=== PATIENT | female | born 1960 | race Caucasian/White ===

== ENCOUNTER 2016-06-30 11:44 | Emergency (ER) | payer MEDICAID ==
[~2016-06-30] VITALS: Ht 160 cm; Wt 99.8 kg
[~2016-06-30 11:44] MED LIST: GABA300C8; METH500T6; NAPR-604; QUET100T38
[2016-06-30] MEDS ORDERED: LORazepam 2MG/ML-1ML VIAL IV ONE ×3 (12:30→17:30)
[2016-06-30] MEDS ORDERED: ALBUTEROL SULF 2.5 MG/0.5ML(0.5%) NEB SOLN NEB ONE ×2 (12:30→16:30)
[2016-06-30] MEDS ORDERED: IPRATROPIUM BROM 0.5 MG/2.5ML INH SOL NEB ONE ×2 (12:30→16:30)
[2016-06-30] MEDS ORDERED: methylPREDNISolone SOD SUCC 125 MG/2 ML VL IV ONE (12:30)
[2016-06-30 12:41] LABS: Basophils # (auto) 0 uL; Basophils % (auto) 0.6 % (0.0-2.0); DEFINITIVE VIEW TRANSMISSION; Eosinophils # (auto) 0.4 uL; Eosinophils % (auto) 7.1 % (0.0-7.0); Hematocrit 39.7 % (36.0-46.0); Hemoglobin 12.2 g/dL (12.2-16.2); Lymphocytes # (auto) 1.4 uL; Lymphocytes % (auto) 24.3 % (10.0-50.0); Mean Corpuscular Hemoglobin 24.2 pg (28.0-32.0); Mean Corpuscular Hgb Conc. 30.6 g/dL (32.0-36.0); Mean Corpuscular Volume 78.9 fL (80.0-100.0); Mean Platelet Volume 7.9 fL (7.4-10.4); Monocytes # (auto) 0.5 uL; Monocytes % (auto) 8.4 % (0.0-12.0); Neutrophils # (auto) 3.3 uL; Neutrophils % (auto) 59.6 % (37.0-80.0); Platelet Count (auto) 308 10^3/uL (140-450); White Blood Cell 5.6 10^3/uL (4.4-10.8)
[2016-06-30 13:01] LABS: Albumin 3.9 g/dL (3.4-5.0); Bilirubin, Total 0.3 mg/dL (0.2-1.0); Calcium 8.8 mg/dL (8.5-10.1); Potassium 3.3 mmol/L (3.5-5.1); Total Protein 7.4 g/dL (6.4-8.2)
[2016-06-30 16:12] VITALS: BP 114/71
[2016-06-30] MEDS ORDERED: cefTRIAXone 1GM/50ML D5W 50 ML IV ONE (16:30)
[2016-06-30 16:44] LABS: Urine Bilirubin Negative (Negative); Urine Blood Negative /uL (Negative); Urine Color Yellow (Yellow); Urine Glucose Normal (Normal); Urine Ketone Negative (Negative); Urine Nitrite Negative (Negative); Urine RBC <1 /hpf (0 - 4); Urine Squamous Epithelial Cell FEW /hpf (<5); Urine Urobilinogen Normal (Negative)
== END 2016-06-30 17:42 | disposition home or self-care (01) ==
LOC: ER 11:48
DX: J40 Bronchitis, not specified as acute or chronic (principal); F41.9 Anxiety disorder, unspecified; Z90.710 Acquired absence of both cervix and uterus; Z90.49 Acquired absence of other specified parts of digestive tract; Z90.89 Acquired absence of other organs
CPT/HCPCS: 36415; 71010; 80053; 81001; 85025; 93005; 94640; 96365; 96375; 96376; 99285; J0696; J2060; J2930

== ENCOUNTER 2016-07-06 10:27 | Emergency (ER) | payer MEDICAID ==
[~2016-07-06] VITALS: Ht 160 cm; Wt 90.7 kg
[2016-07-06 13:19] VITALS: BP 125/80
== END 2016-07-06 14:11 | disposition home or self-care (01) ==
LOC: ER 10:30
DX: S63.502A Unspecified sprain of left wrist, initial encounter (principal); Z90.49 Acquired absence of other specified parts of digestive tract; Z90.710 Acquired absence of both cervix and uterus; Z90.89 Acquired absence of other organs; Z88.1 Allergy status to other antibiotic agents; Z88.6 Allergy status to analgesic agent; Z88.8 Allergy status to other drugs, medicaments and biological substances; W01.0XXA Fall on same level from slipping, tripping and stumbling without subsequent striking against object, initial encounter; Y93.89 Activity, other specified; Y99.8 Other external cause status; Y92.89 Other specified places as the place of occurrence of the external cause
CPT/HCPCS: 73110

== ENCOUNTER 2016-07-18 11:31 | Emergency (ER) | payer MEDICAID ==
[~2016-07-18] VITALS: Ht 160 cm; Wt 99.8 kg
[2016-07-18 13:30] VITALS: BP 102/57
== END 2016-07-18 14:01 | disposition home or self-care (01) ==
LOC: ER 11:36
DX: S92.415A Nondisplaced fracture of proximal phalanx of left great toe, initial encounter for closed fracture (principal); Z88.1 Allergy status to other antibiotic agents; Z88.6 Allergy status to analgesic agent; Z88.8 Allergy status to other drugs, medicaments and biological substances; W19.XXXA Unspecified fall, initial encounter; Y93.01 Activity, walking, marching and hiking; Y92.009 Unspecified place in unspecified non-institutional (private) residence as the place of occurrence of the external cause
CPT/HCPCS: 73130; 73630; 99284; L3260

== ENCOUNTER 2016-09-12 14:58 | Emergency (ER) | payer MEDICAID ==
[~2016-09-12] VITALS: Ht 160 cm; Wt 108.9 kg
[2016-09-12 16:52] VITALS: BP 163/76
== END 2016-09-12 17:33 | disposition home or self-care (01) ==
LOC: ER 14:59
DX: L03.032 Cellulitis of left toe (principal); Z90.49 Acquired absence of other specified parts of digestive tract; Z90.710 Acquired absence of both cervix and uterus; Z90.89 Acquired absence of other organs; Z88.1 Allergy status to other antibiotic agents; Z88.6 Allergy status to analgesic agent; Z91.041 Radiographic dye allergy status
CPT/HCPCS: 73660

== ENCOUNTER 2016-09-14 08:02 | Emergency (ER) | payer MEDICAID ==
[~2016-09-14] VITALS: Ht 160 cm; Wt 90.7 kg
[2016-09-14 08:18] VITALS: BP 115/73
== END 2016-09-14 09:40 | disposition home or self-care (01) ==
LOC: ER 08:02
DX: T25.032D Burn of unspecified degree of left toe(s) (nail), subsequent encounter (principal); F41.9 Anxiety disorder, unspecified; F32.9 Major depressive disorder, single episode, unspecified; Z88.1 Allergy status to other antibiotic agents; Z88.5 Allergy status to narcotic agent; X08.8XXD Exposure to other specified smoke, fire and flames, subsequent encounter

== ENCOUNTER 2017-05-06 12:11 | Emergency (ER) | payer MEDICAID ==
[~2017-05-06] VITALS: Ht 160 cm; Wt 89.4 kg
[~2017-05-06 12:11] MED LIST changes: +AMOX250T8 PO; +GABA-497; -GABA300C8; +IBUP600T27 PO; -NAPR-604; +NAPR375T27; +OXYC325T14 PO
[2017-05-06] MEDS ORDERED: SODIUM CHLORIDE 0.9% 1,000 ML IV ONE ×2 (13:55)
[2017-05-06 14:30] LABS: Basophils # (auto) 0.1 uL; Basophils % (auto) 0.9 % (0.0-2.0); Eosinophils # (auto) 0.6 uL; Eosinophils % (auto) 8.3 % (0.0-7.0); Hematocrit 38.8 % (36.0-46.0); Hemoglobin 12.6 g/dL (12.2-16.2); Lymphocytes # (auto) 1.5 uL; Lymphocytes % (auto) 21.8 % (10.0-50.0); Mean Corpuscular Hgb Conc. 32.6 g/dL (32.0-36.0); Mean Corpuscular Volume 82.7 fL (80.0-100.0); Monocytes # (auto) 0.7 uL; Monocytes % (auto) 9.6 % (0.0-12.0); Neutrophils # (auto) 4.1 uL; Neutrophils % (auto) 59.4 % (37.0-80.0); Nucleated Red Blood Cells % 0.1 %; Red Blood Cells 4.69 10^6/uL (4.0-5.20); Red Cell Distribution Width 15.9 % (11.8-14.3); White Blood Cell 6.9 10^3/uL (4.4-10.8)
[2017-05-06 14:53] LABS: INR 0.98 (0.9-1.15); Partial Thromboplastin Time 25.2 sec (22.64-33.71); Prothrombin Time 10.7 sec (9.37-12.3)
[2017-05-06 15:01] LABS: Alanine Aminotransferase 36 U/L (13-56); Albumin 3.8 g/dL (3.4-5.0); Alkaline Phosphatase 86 U/L (45-117); Anion Gap 8 (5-15); Aspartate Aminotransferase 16 U/L (15-37); BUN/Creatinine Ratio 23.1; Bilirubin, Total 0.3 mg/dL (0.2-1.0); Blood Urea Nitrogen 18 mg/dL (7-18); Calcium 8.2 mg/dL (8.5-10.1); Carbon Dioxide 24 mmol/L (21-32); Chloride 111 mmol/L (98-107); GFR African American 98 mL/min; GFR Non-African American 81 mL/min; Glucose 91 mg/dL (74-106); Potassium 3.7 mmol/L (3.5-5.1); Sodium 143 mmol/L (136-145)
[2017-05-06 15:06] LABS: Platelet Count (auto) 139 10^3/uL (140-450)
[2017-05-06 15:37] LABS: Urine Bacteria NONE SEEN /hpf (None Seen); Urine Blood Negative /uL (Negative); Urine Mucus FEW (None Seen); Urine Specific Gravity 1.025 (1.001-1.035); Urine WBC 1 /hpf (0 - 5)
[2017-05-06 15:40] VITALS: BP 118/77
== END 2017-05-06 16:31 | disposition home or self-care (01) ==
LOC: ER 12:11
DX: R19.7 Diarrhea, unspecified (principal); R10.13 Epigastric pain; R07.9 Chest pain, unspecified; Z88.1 Allergy status to other antibiotic agents; Z88.6 Allergy status to analgesic agent; Z79.899 Other long term (current) drug therapy; Z90.49 Acquired absence of other specified parts of digestive tract; Z90.710 Acquired absence of both cervix and uterus
CPT/HCPCS: 36415; 80053; 81001; 84484; 85025; 85610; 85730; 93005; 93971; 96360; 99285; J7030

== ENCOUNTER 2017-05-30 12:19 | Emergency (ER) | payer MEDICAID ==
[~2017-05-30] VITALS: Ht 160 cm; Wt 91.2 kg
[~2017-05-30 12:19] MED LIST changes: -GABA-497; +GABA300C10
[2017-05-30 14:12] LABS: Basophils # (auto) 0 uL; Eosinophils # (auto) 0.4 uL; Lymphocytes # (auto) 1.5 uL; Monocytes # (auto) 0.4 uL; Neutrophils # (auto) 4.4 uL; White Blood Cell 6.8 10^3/uL (4.4-10.8)
[2017-05-30 14:14] LABS: Basophils % (auto) 0.4 % (0.0-2.0); Eosinophils % (auto) 5.8 % (0.0-7.0); Hematocrit 37.6 % (36.0-46.0); Hemoglobin 12.2 g/dL (12.2-16.2); Lymphocytes % (auto) 21.6 % (10.0-50.0); Mean Corpuscular Hemoglobin 26.5 pg (28.0-32.0); Mean Corpuscular Hgb Conc. 32.5 g/dL (32.0-36.0); Mean Corpuscular Volume 81.5 fL (80.0-100.0); Monocytes % (auto) 6.6 % (0.0-12.0); Neutrophils % (auto) 65.6 % (37.0-80.0); Nucleated Red Blood Cells % 0.2 %; Platelet Count (auto) 309 10^3/uL (140-450); Red Blood Cells 4.62 10^6/uL (4.0-5.20); Red Cell Distribution Width 16.5 % (11.8-14.3)
[2017-05-30 14:40] LABS: Albumin 3.6 g/dL (3.4-5.0); BUN/Creatinine Ratio 28.6; Bilirubin, Total 0.3 mg/dL (0.2-1.0); Calcium 8.3 mg/dL (8.5-10.1); Potassium 3.9 mmol/L (3.5-5.1); Total Protein 6.9 g/dL (6.4-8.2)
[2017-05-30 16:15] VITALS: BP 115/79
[2017-08-20] MEDS ORDERED: CYCL1TAB18 PO (06:00)
[2017-08-20] MEDS ORDERED: OXY5T GT (06:00)
[2017-08-20] MEDS ORDERED: ALBU1SYP PO (06:08)
[2017-08-20] MEDS ORDERED: DICL50TA4 PO (06:08)
[2017-08-20] MEDS ORDERED: HYDR50TA69 PO (06:08)
[2017-08-20] MEDS ORDERED: [UNRECOGNIZED DRUG - CODE] EX (06:08)
[2017-08-20] MEDS ORDERED: TIOT1AER IN (06:08)
[2017-08-20] MEDS ORDERED: AZIT250T8 PO (06:08)
[2017-08-20] MEDS ORDERED: ALPR0.254 PO (06:08)
[2017-08-20] MEDS ORDERED: AMLO5TAB2 PO (06:08)
[2017-08-20] MEDS ORDERED: PRE1T PO (06:08)
[2017-08-20] MEDS ORDERED: CITA-73 (12:50)
== END 2017-05-30 17:03 | disposition home or self-care (01) ==
LOC: ER 12:19
DX: J18.9 Pneumonia, unspecified organism (principal); J45.909 Unspecified asthma, uncomplicated; F17.210 Nicotine dependence, cigarettes, uncomplicated; Z90.49 Acquired absence of other specified parts of digestive tract; Z90.710 Acquired absence of both cervix and uterus
CPT/HCPCS: 36415; 80053; 85025; 93005

== ENCOUNTER 2017-08-27 14:05 | Emergency (ER) | payer MEDICAID ==
[~2017-08-27] VITALS: Ht 157.5 cm; Wt 93.0 kg
[~2017-08-27 14:05] MED LIST changes: +ALBU1SYP PO; +ALPR0.254 PO; +AMLO5TAB2 PO; -AMOX250T8 PO; +AZIT250T8 PO; +CITA-73; +CYCL1TAB18 PO; +DICL50TA4 PO; +HYDR50TA69 PO; -IBUP600T27 PO; -METH500T6; -NAPR375T27; +OXY5T GT; +PRE1T PO; +TIOT1AER IN; +[UNRECOGNIZED DRUG - CODE] EX
[2017-08-27 14:45] LABS: Basophils # (auto) 0.1 uL; Eosinophils # (auto) 0.1 uL; Hematocrit 40.4 % (36.0-46.0); Lymphocytes # (auto) 0.8 uL; Mean Corpuscular Hgb Conc. 32.2 g/dL (32.0-36.0); Monocytes # (auto) 0.2 uL; Monocytes % (auto) 1.9 % (0.0-12.0); Neutrophils # (auto) 8.9 uL
[2017-08-27 14:47] LABS: Basophils % (auto) 0.7 % (0.0-2.0); Eosinophils % (auto) 0.7 % (0.0-7.0); Lymphocytes % (auto) 8.3 % (10.0-50.0); Mean Corpuscular Hemoglobin 26.2 pg (28.0-32.0); Mean Corpuscular Volume 81.2 fL (80.0-100.0); Neutrophils % (auto) 88.4 % (37.0-80.0); Platelet Count (auto) 352 10^3/uL (140-450); Red Blood Cells 4.97 10^6/uL (4.0-5.20); White Blood Cell 10.1 10^3/uL (4.4-10.8)
[2017-08-27 15:02] LABS: Alanine Aminotransferase 58 U/L (13-56); Albumin 3.5 g/dL (3.4-5.0); Anion Gap 8 (5-15); Aspartate Aminotransferase 33 U/L (15-37); BUN/Creatinine Ratio 23.1; Blood Urea Nitrogen 25 mg/dL (7-18); Calcium 8.4 mg/dL (8.5-10.1); Carbon Dioxide 24 mmol/L (21-32); Chloride 108 mmol/L (98-107); GFR African American 67 mL/min; GFR Non-African American 56 mL/min; Glucose 195 mg/dL (74-106); Potassium 3.8 mmol/L (3.5-5.1); Sodium 140 mmol/L (136-145)
[2017-08-27 15:06] LABS: Alkaline Phosphatase 119 U/L (45-117); Bilirubin, Total 0.3 mg/dL (0.2-1.0); Total Protein 7.1 g/dL (6.4-8.2)
[2017-08-27 15:30] VITALS: BP 137/81
[2017-08-27] MEDS ORDERED: ALBUTEROL SULF 2.5 MG/0.5ML(0.5%) NEB SOLN NEB ONE (15:30)
[2017-08-27] MEDS ORDERED: IPRATROPIUM BROM 0.5 MG/2.5ML INH SOL NEB ONE (15:30)
== END 2017-08-27 16:28 | disposition home or self-care (01) ==
LOC: ER 14:08
DX: J45.909 Unspecified asthma, uncomplicated (principal); I10 Essential (primary) hypertension; Z90.49 Acquired absence of other specified parts of digestive tract; Z90.710 Acquired absence of both cervix and uterus; F17.210 Nicotine dependence, cigarettes, uncomplicated
CPT/HCPCS: 36415; 71046; 80053; 84484; 85025; 93005; 94640

== ENCOUNTER 2017-09-20 16:22 | Emergency (ER) | payer MEDICAID ==
[~2017-09-20] VITALS: Ht 160 cm; Wt 92.5 kg
[~2017-09-20 16:22] MED LIST changes: -AZIT250T8 PO; -CYCL1TAB18 PO; -DICL50TA4 PO; -GABA300C10; -HYDR50TA69 PO; -OXY5T GT; -OXYC325T14 PO; -PRE1T PO
[2017-09-20 17:11] LABS: Basophils # (auto) 0.1 uL; Basophils % (auto) 2.3 % (0.0-2.0); Eosinophils # (auto) 0.2 uL; Eosinophils % (auto) 2.9 % (0.0-7.0); Hematocrit 34.7 % (36.0-46.0); Hemoglobin 11.5 g/dL (12.2-16.2); Lymphocytes # (auto) 1.4 uL; Lymphocytes % (auto) 23.6 % (10.0-50.0); Mean Corpuscular Hemoglobin 27.1 pg (28.0-32.0); Mean Corpuscular Hgb Conc. 33.2 g/dL (32.0-36.0); Mean Corpuscular Volume 81.7 fL (80.0-100.0); Monocytes # (auto) 0.7 uL; Monocytes % (auto) 11.7 % (0.0-12.0); Neutrophils # (auto) 3.6 uL; Neutrophils % (auto) 59.5 % (37.0-80.0); Nucleated Red Blood Cells % 0.1 %; Platelet Count (auto) 234 10^3/uL (140-450); Red Blood Cells 4.25 10^6/uL (4.0-5.20); Red Cell Distribution Width 18.2 % (11.8-14.3)
[2017-09-20 17:32] LABS: Alanine Aminotransferase 100 U/L (13-56); Albumin 3.3 g/dL (3.4-5.0); Anion Gap 11 (5-15); Aspartate Aminotransferase 48 U/L (15-37); BUN/Creatinine Ratio 16.3; Blood Urea Nitrogen 15 mg/dL (7-18); Calcium 8.2 mg/dL (8.5-10.1); Carbon Dioxide 24 mmol/L (21-32); Chloride 107 mmol/L (98-107); GFR African American 81 mL/min; GFR Non-African American 67 mL/min; Glucose 151 mg/dL (74-106); Magnesium 2.1 mg/dL (1.6-2.6); Potassium 3.2 mmol/L (3.5-5.1); Sodium 142 mmol/L (136-145)
[2017-09-20 17:37] LABS: Alkaline Phosphatase 95 U/L (45-117); Bilirubin, Total 0.2 mg/dL (0.2-1.0); Total Protein 6.6 g/dL (6.4-8.2)
[2017-09-20 19:29] VITALS: BP 125/80
[2017-09-20] MEDS ORDERED: cefTRIAXone 1GM/10ml IVPUSH 10 ML IV ONE (20:00)
[2017-09-20] MEDS ORDERED: POTASSIUM CHL 20 Meq TABLET PO ONE (20:00)
[2017-09-20] MEDS ORDERED: KETOROLAC TROMETH 60MG/2ML VIAL IM ONE (20:00)
[2017-09-20] MEDS ORDERED: cefTRIAXone SOD 1,000 MG VL IM ONE (20:15)
[2017-09-20 20:51] LABS: Urine Bacteria FEW /hpf (None Seen); Urine Blood TRACE /uL (Negative); Urine Mucus FEW (None Seen); Urine Specific Gravity 1.021 (1.001-1.035); Urine WBC 14 /hpf (0 - 5)
== END 2017-09-20 21:25 | disposition home or self-care (01) ==
LOC: ER 16:39
DX: J45.909 Unspecified asthma, uncomplicated (principal); N39.0 Urinary tract infection, site not specified; R94.5 Abnormal results of liver function studies
CPT/HCPCS: 36415; 71046; 80053; 81001; 81025; 83735; 84484; 85025; 93005; 96372; 99285; J0696; J1885

== ENCOUNTER 2017-10-01 17:56 | Emergency (ER) | payer MEDICAID ==
[~2017-10-01] VITALS: Ht 160 cm; Wt 93.0 kg
[2017-10-01 18:16] VITALS: BP 136/87
== END 2017-10-01 23:00 | disposition home or self-care (01) ==
LOC: ER 17:56
DX: S90.32XA Contusion of left foot, initial encounter (principal); S90.31XA Contusion of right foot, initial encounter; J45.909 Unspecified asthma, uncomplicated; I10 Essential (primary) hypertension; E66.9 Obesity, unspecified; Z68.36 Body mass index [BMI] 36.0-36.9, adult; X58.XXXA Exposure to other specified factors, initial encounter; Y93.89 Activity, other specified; Y92.89 Other specified places as the place of occurrence of the external cause; Y99.8 Other external cause status; Z90.710 Acquired absence of both cervix and uterus; Z90.49 Acquired absence of other specified parts of digestive tract; Z88.6 Allergy status to analgesic agent; Z88.1 Allergy status to other antibiotic agents; Z88.8 Allergy status to other drugs, medicaments and biological substances
CPT/HCPCS: 73620

== ENCOUNTER 2017-10-15 12:53 | Inpatient (IN) | payer MEDICAID ==
[~2017-10-15] VITALS: Ht 160 cm; Wt 94.2 kg
[2017-10-15] MEDS ORDERED: methylPREDNISolone SOD SUCC 125 MG/2 ML VL IV ONE (13:30)
[2017-10-15] MEDS ORDERED: ALBUTEROL SULF 2.5 MG/0.5ML(0.5%) NEB SOLN HHN ONE (13:30)
[2017-10-15] MEDS ORDERED: IPRATROPIUM BROM 0.5 MG/2.5ML INH SOL HHN ONE (13:30)
[2017-10-15 14:59] LABS: Basophils # (auto) 0.1 uL; Eosinophils # (auto) 0.1 uL; Lymphocytes # (auto) 1.2 uL; Monocytes # (auto) 0.7 uL; Nucleated Red Blood Cells % 0.1 %
[2017-10-15 15:01] LABS: Basophils % (auto) 1.5 % (0.0-2.0); Eosinophils % (auto) 0.8 % (0.0-7.0); Hematocrit 36.8 % (36.0-46.0); Hemoglobin 12.2 g/dL (12.2-16.2); Lymphocytes % (auto) 16.7 % (10.0-50.0); Mean Corpuscular Hgb Conc. 33.1 g/dL (32.0-36.0); Mean Corpuscular Volume 78.4 fL (80.0-100.0); Monocytes % (auto) 9.8 % (0.0-12.0); Neutrophils # (auto) 5.3 uL; Neutrophils % (auto) 71.2 % (37.0-80.0); Platelet Count (auto) 376 10^3/uL (140-450); Red Blood Cells 4.69 10^6/uL (4.0-5.20); Red Cell Distribution Width 17.8 % (11.8-14.3); White Blood Cell 7.4 10^3/uL (4.4-10.8)
[2017-10-15] MEDS ORDERED: FUROSEMIDE 40 MG/4 ML VIAL IV ONE (15:15)
[2017-10-15] MEDS ORDERED: DOXYCYCLINE 100 MG TAB/CAP PO ONE (15:15)
[2017-10-15] MEDS ORDERED: POTASSIUM CHL 20 Meq TABLET PO ONE (15:15)
[2017-10-15] MEDS ORDERED: ONDANSETRON HCL 4 MG/2 ML VIAL IV PRN (15:15)
[2017-10-15 15:24] LABS: Alanine Aminotransferase 95 U/L (13-56); Albumin 3.6 g/dL (3.4-5.0); Alkaline Phosphatase 265 U/L (45-117); Anion Gap 10 (5-15); Aspartate Aminotransferase 43 U/L (15-37); BUN/Creatinine Ratio 20.3; Bilirubin, Total 0.6 mg/dL (0.2-1.0); Blood Urea Nitrogen 26 mg/dL (7-18); Carbon Dioxide 28 mmol/L (21-32); Chloride 98 mmol/L (98-107); GFR African American 55 mL/min; GFR Non-African American 46 mL/min; Glucose 105 mg/dL (74-106); Magnesium 2.6 mg/dL (1.6-2.6); Sodium 136 mmol/L (136-145)
[2017-10-15] MEDS ORDERED: amLODIPine BESYLATE 5 MG TAB PO ONE (15:30)
[2017-10-15] MEDS ORDERED: CITALOPRAM HYDROBR 20 MG TAB PO ONE (15:30)
[2017-10-15] MEDS ORDERED: PANTOPRAZOLE 40 MG TAB PO ONE (15:30)
[2017-10-15 16:11] LABS: Potassium 2.7 mmol/L (3.5-5.1)
[2017-10-15 17:00] VITALS: BP 116/69
[2017-10-15] MEDS: MORPHINE SULF INJ 2 MG/ML SYRINGE 1ML IV PRN ×2 (17:00→23:03)
[2017-10-15] MEDS: POTASSIUM CHL 20 Meq TABLET PO SCH ×2 (17:22→19:27)
[2017-10-15] MEDS: ALBUTEROL SULF 2.5 MG/0.5ML(0.5%) NEB SOLN NEB SCH (18:21)
[2017-10-15] MEDS: BUDESONIDE (INHALATION) 0.5 MG/2 ML NEB NEB SCH (18:21)
[2017-10-15] MEDS: IPRATROPIUM BROM 0.5 MG/2.5ML INH SOL NEB SCH (18:21)
[2017-10-15 18:59] VITALS: BP 116/69
[2017-10-15 19:23] LABS: Urine Bacteria NONE SEEN /hpf (None Seen); Urine Blood Negative /uL (Negative); Urine Hyaline Cast FEW /lpf (0 - 2); Urine Specific Gravity 1.012 (1.001-1.035); Urine WBC 2 /hpf (0 - 5)
[2017-10-15] MEDS: ALPRAZolam 0.25 MG TAB PO PRN (19:32)
[2017-10-15 20:00] VITALS: BP 104/64
[2017-10-15] MEDS: HYDROcodone-ACET 5/325MG TAB PO PRN (20:53)
[2017-10-15] MEDS: DOXYCYCLINE 100 MG TAB/CAP PO SCH (21:58)
[2017-10-15] MEDS: QUEtiapine FUMARATE 100 MG TAB PO SCH (21:59)
[2017-10-16] MEDS: ALBUTEROL SULF 2.5 MG/0.5ML(0.5%) NEB SOLN NEB SCH ×4 (00:53→19:06)
[2017-10-16] MEDS: IPRATROPIUM BROM 0.5 MG/2.5ML INH SOL NEB SCH ×4 (00:53→19:06)
[2017-10-16 04:58] VITALS: BP 100/65
[2017-10-16] MEDS: MORPHINE SULF INJ 2 MG/ML SYRINGE 1ML IV PRN ×2 (06:15→20:15)
[2017-10-16] MEDS: BUDESONIDE (INHALATION) 0.5 MG/2 ML NEB NEB SCH ×2 (06:25→19:06)
[2017-10-16 09:00] VITALS: BP 95/55
[2017-10-16] MEDS ORDERED: amLODIPine BESYLATE 5 MG TAB PO SCH (10:00)
[2017-10-16] MEDS: DOXYCYCLINE 100 MG TAB/CAP PO SCH ×2 (11:04→22:17)
[2017-10-16] MEDS: PANTOPRAZOLE 40 MG TAB PO SCH (11:04)
[2017-10-16] MEDS: CITALOPRAM HYDROBR 20 MG TAB PO SCH (11:05)
[2017-10-16 12:05] VITALS: BP 93/52
[2017-10-16] MEDS: HYDROcodone-ACET 5/325MG TAB PO PRN (13:31)
[2017-10-16 16:43] VITALS: BP 102/61
[2017-10-16] MEDS: ALPRAZolam 0.25 MG TAB PO PRN (20:15)
[2017-10-16 21:41] VITALS: BP 112/65
[2017-10-16] MEDS: QUEtiapine FUMARATE 100 MG TAB PO SCH (22:17)
[2017-10-17] MEDS: MORPHINE SULF INJ 2 MG/ML SYRINGE 1ML IV PRN (02:24)
[2017-10-17 05:16] VITALS: BP 103/68
[2017-10-17] MEDS: ALBUTEROL SULF 2.5 MG/0.5ML(0.5%) NEB SOLN NEB SCH ×2 (06:44→12:02)
[2017-10-17] MEDS: IPRATROPIUM BROM 0.5 MG/2.5ML INH SOL NEB SCH ×2 (06:44→12:02)
[2017-10-17] MEDS: BUDESONIDE (INHALATION) 0.5 MG/2 ML NEB NEB SCH (06:44)
[2017-10-17 08:54] LABS: Albumin 3.3 g/dL (3.4-5.0); BUN/Creatinine Ratio 30.1; Bilirubin, Total 0.2 mg/dL (0.2-1.0); Calcium 8.8 mg/dL (8.5-10.1); Magnesium 2.1 mg/dL (1.6-2.6); Potassium 3.3 mmol/L (3.5-5.1); Total Protein 6.5 g/dL (6.4-8.2)
[2017-10-17 09:19] VITALS: BP 99/65
[2017-10-17] MEDS: DOXYCYCLINE 100 MG TAB/CAP PO SCH (09:29)
[2017-10-17] MEDS: HYDROcodone-ACET 5/325MG TAB PO PRN (09:30)
[2017-10-17] MEDS: CITALOPRAM HYDROBR 20 MG TAB PO SCH (09:30)
[2017-10-17] MEDS: PANTOPRAZOLE 40 MG TAB PO SCH (09:30)
[2017-10-17] MEDS ORDERED: predniSONE 20 MG TAB PO SCH (10:00)
[2017-10-17 12:56] VITALS: BP 105/73
[2017-10-17] MEDS ORDERED: POTASSIUM CHL 20 Meq TABLET PO ONE (13:15)
[2017-10-17 13:29] VITALS: BP 105/73
[2017-10-23] MEDS ORDERED: predniSONE 5 MG TAB PO SCH (10:00)
== END 2017-10-17 15:15 | disposition home or self-care (01) | DRG 140 ==
LOC: ER 12:53 → EAST 12:54
PROVIDERS: ADMIT Internal Medicine; ATTEND Internal Medicine
DX: J44.0 Chronic obstructive pulmonary disease with (acute) lower respiratory infection (principal); J18.9 Pneumonia, unspecified organism; N17.9 Acute kidney failure, unspecified; J44.1 Chronic obstructive pulmonary disease with (acute) exacerbation; I10 Essential (primary) hypertension; F41.9 Anxiety disorder, unspecified; E66.9 Obesity, unspecified; E87.6 Hypokalemia; F31.9 Bipolar disorder, unspecified; K21.9 Gastro-esophageal reflux disease without esophagitis; R79.89 Other specified abnormal findings of blood chemistry; Z90.710 Acquired absence of both cervix and uterus; Z90.49 Acquired absence of other specified parts of digestive tract; Z79.899 Other long term (current) drug therapy; Z88.1 Allergy status to other antibiotic agents; Z88.6 Allergy status to analgesic agent; Z88.8 Allergy status to other drugs, medicaments and biological substances; Z87.891 Personal history of nicotine dependence; Z82.49 Family history of ischemic heart disease and other diseases of the circulatory system; Z68.36 Body mass index [BMI] 36.0-36.9, adult
CPT/HCPCS: 36415; 71046; 80053; 81001; 83735; 83880; 84484; 85025; 94640; 94761; 96374; 96375

== ENCOUNTER 2017-11-02 19:02 | Emergency (ER) | payer MEDICAID ==
[~2017-11-02] VITALS: Ht 160 cm; Wt 87.1 kg
[2017-11-02 22:38] LABS: Urine Bacteria NONE SEEN /hpf (None Seen); Urine Blood Negative /uL (Negative); Urine Mucus FEW (None Seen); Urine Specific Gravity 1.017 (1.001-1.035); Urine WBC 11 /hpf (0 - 5)
[2017-11-02 23:12] LABS: Basophils # (auto) 0.1 uL; Basophils % (auto) 1.5 % (0.0-2.0); Eosinophils # (auto) 0.3 uL; Eosinophils % (auto) 4.8 % (0.0-7.0); Hematocrit 37.7 % (36.0-46.0); Lymphocytes # (auto) 1.8 uL; Lymphocytes % (auto) 29.3 % (10.0-50.0); Mean Corpuscular Hemoglobin 25.1 pg (28.0-32.0); Mean Corpuscular Hgb Conc. 31.9 g/dL (32.0-36.0); Mean Corpuscular Volume 78.7 fL (80.0-100.0); Monocytes # (auto) 0.7 uL; Monocytes % (auto) 11.2 % (0.0-12.0); Neutrophils # (auto) 3.3 uL; Neutrophils % (auto) 53.2 % (37.0-80.0); Nucleated Red Blood Cells % 0.1 %; Platelet Count (auto) 366 10^3/uL (140-450); Red Blood Cells 4.79 10^6/uL (4.0-5.20); Red Cell Distribution Width 18.9 % (11.8-14.3); White Blood Cell 6.3 10^3/uL (4.4-10.8)
[2017-11-02 23:28] LABS: Albumin 3.7 g/dL (3.4-5.0); BUN/Creatinine Ratio 10.1; Bilirubin, Total 0.4 mg/dL (0.2-1.0); Calcium 8.4 mg/dL (8.5-10.1); Total Protein 6.8 g/dL (6.4-8.2)
[2017-11-03] MEDS ORDERED: HYDROcodone-ACET 10/325MG TAB PO ONE (04:30)
[2017-11-03] MEDS ORDERED: metroNIDAZOLE 500 MG TAB PO ONE (04:30)
[2017-11-03 06:00] VITALS: BP 140/70
== END 2017-11-03 06:20 | disposition home or self-care (01) ==
LOC: ER 19:02
DX: N39.0 Urinary tract infection, site not specified (principal); R19.7 Diarrhea, unspecified; I10 Essential (primary) hypertension; J44.9 Chronic obstructive pulmonary disease, unspecified; Z90.710 Acquired absence of both cervix and uterus; Z90.49 Acquired absence of other specified parts of digestive tract; Z90.89 Acquired absence of other organs; Z88.1 Allergy status to other antibiotic agents; Z88.8 Allergy status to other drugs, medicaments and biological substances
CPT/HCPCS: 36415; 71046; 74176; 80053; 81001; 85025; 93005

== ENCOUNTER 2017-11-12 07:10 | Inpatient (IN) | payer MEDICAID ==
[~2017-11-12] VITALS: Ht 167.6 cm; Wt 99.4 kg
[2017-11-12] MEDS ORDERED: NALOXONE HCL 0.4 MG/ML VIAL IV ONE ×3 (08:00→14:15)
[2017-11-12 08:25] LABS: Eosinophils # (auto) 0 uL; Eosinophils % (auto) 0.1 % (0.0-7.0); Hemoglobin 12.2 g/dL (12.2-16.2); Lymphocytes # (auto) 0.5 uL; Monocytes # (auto) 0.8 uL
[2017-11-12 08:27] LABS: Basophils # (auto) 0.1 uL; Basophils % (auto) 0.4 % (0.0-2.0); Lymphocytes % (auto) 3.3 % (10.0-50.0); Mean Corpuscular Hemoglobin 24.7 pg (28.0-32.0); Mean Corpuscular Hgb Conc. 31.2 g/dL (32.0-36.0); Mean Corpuscular Volume 79.2 fL (80.0-100.0); Neutrophils % (auto) 91.2 % (37.0-80.0); Platelet Count (auto) 377 10^3/uL (140-450); Red Blood Cells 4.93 10^6/uL (4.0-5.20); Red Cell Distribution Width 19.3 % (11.8-14.3); White Blood Cell 15.4 10^3/uL (4.4-10.8)
[2017-11-12 08:33] LABS: INR 1.03 (0.9-1.15); Partial Thromboplastin Time 25.4 sec (23.78-33.04)
[2017-11-12 08:36] LABS: Salicylate < 1.7 mg/dL (2.8-20.0)
[2017-11-12 08:40] LABS: Acetaminophen 8.6 ug/mL (10-30)
[2017-11-12 08:44] LABS: Lactic Acid w/Reflex 2.3 mmol/L (0.4-2.0)
[2017-11-12 08:47] LABS: Alcohol, Urine < 3.0 mg/dL (0-5); Amphetamine Screen, Urine NEGATIVE (NEGATIVE); Barbiturate Scree,Urine NEGATIVE (NEGATIVE); Benzodiazephine Screen, Urine POSITIVE (NEGATIVE); Cannabinoid Screen, Urine NEGATIVE (NEGATIVE); Cocaine Screen, Urine NEGATIVE (NEGATIVE); Opiate Scree,Urine POSITIVE (NEGATIVE); Phencyclidine Screen, Urine NEGATIVE (NEGATIVE)
[2017-11-12 08:49] LABS: Alanine Aminotransferase 184 U/L (13-56); Albumin 3.9 g/dL (3.4-5.0); Alkaline Phosphatase 252 U/L (45-117); Anion Gap 14 (5-15); Aspartate Aminotransferase 391 U/L (15-37); BUN/Creatinine Ratio 6.1; Bilirubin, Total 0.5 mg/dL (0.2-1.0); Blood Alcohol < 3.0 mg/dL (0-5); Blood Urea Nitrogen 21 mg/dL (7-18); Calcium 7.8 mg/dL (8.5-10.1); Carbon Dioxide 22 mmol/L (21-32); Chloride 103 mmol/L (98-107); GFR African American 18 mL/min; GFR Non-African American 15 mL/min; Glucose 124 mg/dL (74-106); Potassium 3.7 mmol/L (3.5-5.1); Sodium 139 mmol/L (136-145)
[2017-11-12 08:51] LABS: Urine Amorphous Crystal FEW /hpf (None Seen); Urine Bacteria FEW /hpf (None Seen); Urine Blood 2+ /uL (Negative); Urine Hyaline Cast MOD /lpf (0 - 2); Urine Mucus FEW (None Seen); Urine Specific Gravity 1.019 (1.001-1.035); Urine WBC 7 /hpf (0 - 5)
[2017-11-12] MEDS ORDERED: SODIUM CHLORIDE 0.9% 1,000 ML IV ONE (09:15)
[2017-11-12] MEDS ORDERED: VANCOMYCIN PER PHARMACY 0 MG IV SCH (10:00)
[2017-11-12] MEDS ORDERED: cefTRIAXone 1GM/10ml IVPUSH 10 ML IV ONE (10:00)
[2017-11-12] MEDS ORDERED: SODIUM CHLORIDE 0.9% 1,000 ML IV SCH (10:10)
[2017-11-12] MEDS ORDERED: DOCUSATE SOD 100 MG CAP PO PRN (10:15)
[2017-11-12] MEDS ORDERED: LOSARTAN POTASSIUM 50 MG TAB PO ONE (10:15)
[2017-11-12] MEDS ORDERED: amLODIPine BESYLATE 5 MG TAB PO ONE (10:15)
[2017-11-12] MEDS ORDERED: ONDANSETRON HCL 4 MG/2 ML VIAL IV PRN (10:15)
[2017-11-12] MEDS ORDERED: NITROGLYCERIN 0.4 MG SL TAB SL PRN (10:15)
[2017-11-12] MEDS ORDERED: MORPHINE SULF INJ 2 MG/ML SYRINGE 1ML IV PRN (10:15)
[2017-11-12] MEDS ORDERED: TOPIRAMATE 100 MG TAB PO ONE (10:15)
[2017-11-12] MEDS ORDERED: DEXTROSE (50%) 50ML SYRG IV PRN (10:15)
[2017-11-12] MEDS ORDERED: LORazepam 2MG/ML-1ML VIAL IV PRN (10:15)
[2017-11-12] MEDS ORDERED: ACETAMINOPHEN 325 MG TAB PO PRN (10:15)
[2017-11-12] MEDS ORDERED: HYDROcodone-ACET 5/325MG TAB PO PRN (10:15)
[2017-11-12 10:45] LABS: % Iron Saturation 20.7 % (15-50)
[2017-11-12] MEDS ORDERED: VANCOMYCIN 1GM/250ML 250 ML IV ONE (11:00)
[2017-11-12] MEDS: ACCU-CHEK COMFORT CURVE STRIP VI SCH ×3 (11:51→22:04)
[2017-11-12] MEDS: InsuLIN REG 1unit/0.01ml Soln (100units/ml) SC SCH ×3 (12:27→22:00)
[2017-11-12] MEDS ORDERED: SODIUM CHLORIDE 0.9% 2,000 ML IV ONE (13:00)
[2017-11-12] MEDS ORDERED: NALOXONE HCL 0.4 MG/ML VIAL ONE (14:08)
[2017-11-12] MEDS ORDERED: NALOXONE HCL 0.4 MG/ML VIAL IV PRN (14:45)
[2017-11-12] MEDS: SODIUM CHLORIDE 0.9% 1,000 ML IV SCH ×2 (16:38→22:00)
[2017-11-12] MEDS: OXYBUTYNIN CHL 5 MG TAB PO SCH (22:00)
[2017-11-12] MEDS: QUEtiapine FUMARATE 100 MG TAB PO SCH (22:00)
[2017-11-12] MEDS: FAMOTIDINE 20 MG TAB PO SCH (22:00)
[2017-11-12] MEDS: TOPIRAMATE 100 MG TAB PO SCH (22:00)
[2017-11-13] MEDS ORDERED: LORazepam 2MG/ML-1ML VIAL IV ONE (04:00)
[2017-11-13] MEDS ORDERED: DIGOXIN (250MCG/ML) 2 ML AMPULE IV ONE (05:00)
[2017-11-13] MEDS ORDERED: METOPROLOL TARTRATE 25 MG TAB PO ONE (05:00)
[2017-11-13 05:37] LABS: Basophils # (auto) 0.1 uL; Basophils % (auto) 0.6 % (0.0-2.0); Monocytes # (auto) 0.9 uL; Monocytes % (auto) 9.2 % (0.0-12.0); Neutrophils # (auto) 7.9 uL
[2017-11-13 05:39] LABS: Eosinophils # (auto) 0.1 uL; Eosinophils % (auto) 1.5 % (0.0-7.0); Hematocrit 38.3 % (36.0-46.0); Hemoglobin 12.3 g/dL (12.2-16.2); Lymphocytes % (auto) 9.8 % (10.0-50.0); Mean Corpuscular Volume 81.2 fL (80.0-100.0); Neutrophils % (auto) 78.9 % (37.0-80.0); Platelet Count (auto) 284 10^3/uL (140-450); Red Blood Cells 4.72 10^6/uL (4.0-5.20); Red Cell Distribution Width 18.9 % (11.8-14.3)
[2017-11-13] MEDS: SODIUM CHLORIDE 0.9% 1,000 ML IV SCH ×3 (05:40→18:51)
[2017-11-13 06:00] LABS: Albumin 2.6 g/dL (3.4-5.0); BUN/Creatinine Ratio 9.3; Bilirubin, Total 0.3 mg/dL (0.2-1.0); Calcium 6.2 mg/dL (8.5-10.1); Magnesium 1.7 mg/dL (1.6-2.6); Phosphorus 3.3 mg/dL (2.5-4.90); Potassium 3.5 mmol/L (3.5-5.1); Total Protein 5.3 g/dL (6.4-8.2); Uric Acid 5.7 mg/dL (2.6-6.0)
[2017-11-13] MEDS ORDERED: DILTIAZEM HCL 25 MG/5 ML VIAL IV ONE ×2 (06:15→06:45)
[2017-11-13] MEDS: InsuLIN REG 1unit/0.01ml Soln (100units/ml) SC SCH ×4 (06:36→22:00)
[2017-11-13] MEDS: ACCU-CHEK COMFORT CURVE STRIP VI SCH ×4 (06:36→22:47)
[2017-11-13] MEDS: TOPIRAMATE 100 MG TAB PO SCH ×2 (09:34→22:46)
[2017-11-13] MEDS: amLODIPine BESYLATE 5 MG TAB PO SCH (09:34)
[2017-11-13] MEDS: FAMOTIDINE 20 MG TAB PO SCH ×2 (09:34→22:46)
[2017-11-13] MEDS: LOSARTAN POTASSIUM 50 MG TAB PO SCH (09:34)
[2017-11-13] MEDS: cefTRIAXone 1GM/10ml IVPUSH 10 ML IV SCH (09:34)
[2017-11-13] MEDS: MULTIPLE VITAMIN TAB PO SCH (09:34)
[2017-11-13] MEDS: OXYBUTYNIN CHL 5 MG TAB PO SCH ×2 (09:34→22:46)
[2017-11-13 12:00] VITALS: BP 118/58
[2017-11-13 13:00] VITALS: BP 99/65
[2017-11-13] MEDS ORDERED: ERGOCALCIFEROL 50,000 UNIT(1.25MG) CAP PO SCH (14:00)
[2017-11-13 17:00] VITALS: BP 101/68
[2017-11-13 22:00] VITALS: BP 124/67
[2017-11-13] MEDS: QUEtiapine FUMARATE 100 MG TAB PO SCH (22:46)
[2017-11-14 00:55] VITALS: BP 101/68
[2017-11-14] MEDS: SODIUM CHLORIDE 0.9% 1,000 ML IV SCH ×3 (02:47→14:55)
[2017-11-14 06:00] VITALS: BP 122/72
[2017-11-14] MEDS: ACCU-CHEK COMFORT CURVE STRIP VI SCH ×2 (06:14→13:42)
[2017-11-14] MEDS: InsuLIN REG 1unit/0.01ml Soln (100units/ml) SC SCH ×2 (06:14→11:30)
[2017-11-14 07:08] LABS: Basophils # (auto) 0.1 uL; Basophils % (auto) 0.7 % (0.0-2.0); Eosinophils # (auto) 0.2 uL; Eosinophils % (auto) 3.2 % (0.0-7.0); Lymphocytes # (auto) 0.6 uL; Red Blood Cells 4.28 10^6/uL (4.0-5.20)
[2017-11-14 07:12] LABS: Hematocrit 34.1 % (36.0-46.0); Lymphocytes % (auto) 8.4 % (10.0-50.0); Mean Corpuscular Hemoglobin 25.8 pg (28.0-32.0); Mean Corpuscular Hgb Conc. 32.4 g/dL (32.0-36.0); Mean Corpuscular Volume 79.6 fL (80.0-100.0); Monocytes # (auto) 0.6 uL; Monocytes % (auto) 8.5 % (0.0-12.0); Neutrophils # (auto) 5.9 uL; Neutrophils % (auto) 79.2 % (37.0-80.0); Platelet Count (auto) 272 10^3/uL (140-450); Red Cell Distribution Width 19.1 % (11.8-14.3); White Blood Cell 7.4 10^3/uL (4.4-10.8)
[2017-11-14 07:23] LABS: Albumin 2.3 g/dL (3.4-5.0); BUN/Creatinine Ratio 7.7; Calcium 6.7 mg/dL (8.5-10.1); Potassium 3.5 mmol/L (3.5-5.1)
[2017-11-14 07:27] LABS: Bilirubin, Total 0.2 mg/dL (0.2-1.0)
[2017-11-14 07:43] VITALS: BP 115/77
[2017-11-14 09:02] VITALS: BP 115/77
[2017-11-14] MEDS: cefTRIAXone 1GM/10ml IVPUSH 10 ML IV SCH (09:10)
[2017-11-14] MEDS: FAMOTIDINE 20 MG TAB PO SCH (09:10)
[2017-11-14] MEDS: amLODIPine BESYLATE 5 MG TAB PO SCH (09:11)
[2017-11-14] MEDS: TOPIRAMATE 100 MG TAB PO SCH (09:11)
[2017-11-14] MEDS: OXYBUTYNIN CHL 5 MG TAB PO SCH (09:11)
[2017-11-14] MEDS: LOSARTAN POTASSIUM 50 MG TAB PO SCH (09:12)
[2017-11-14] MEDS: MULTIPLE VITAMIN TAB PO SCH (09:12)
[2017-11-14 11:11] VITALS: BP 115/77
[2017-11-14 13:00] VITALS: BP 121/84
== END 2017-11-14 14:10 | disposition home or self-care (01) | DRG 720 ==
LOC: EDBD 07:10 → ER 07:10 → TELE 07:11 → TELE-CENTR 11-13 12:00
PROVIDERS: ADMIT Internal Medicine; ATTEND Family Medicine
DX: A41.9 Sepsis, unspecified organism (principal); J96.91 Respiratory failure, unspecified with hypoxia; N17.0 Acute kidney failure with tubular necrosis; G92 Toxic encephalopathy; N18.6 End stage renal disease; I12.0 Hypertensive chronic kidney disease with stage 5 chronic kidney disease or end stage renal disease; N39.0 Urinary tract infection, site not specified; E11.22 Type 2 diabetes mellitus with diabetic chronic kidney disease; E11.21 Type 2 diabetes mellitus with diabetic nephropathy; E66.9 Obesity, unspecified; E83.51 Hypocalcemia; F17.200 Nicotine dependence, unspecified, uncomplicated; F32.9 Major depressive disorder, single episode, unspecified; G47.10 Hypersomnia, unspecified; G89.4 Chronic pain syndrome; J44.9 Chronic obstructive pulmonary disease, unspecified; J98.11 Atelectasis; K21.9 Gastro-esophageal reflux disease without esophagitis; K76.0 Fatty (change of) liver, not elsewhere classified; N28.0 Ischemia and infarction of kidney; F41.9 Anxiety disorder, unspecified; M25.811 Other specified joint disorders, right shoulder; S36.119A Unspecified injury of liver, initial encounter; X58.XXXA Exposure to other specified factors, initial encounter; T40.2X5A Adverse effect of other opioids, initial encounter; Z90.710 Acquired absence of both cervix and uterus; Z90.49 Acquired absence of other specified parts of digestive tract; Z88.8 Allergy status to other drugs, medicaments and biological substances; Z88.1 Allergy status to other antibiotic agents; Z79.4 Long term (current) use of insulin; Z80.42 Family history of malignant neoplasm of prostate; Z82.49 Family history of ischemic heart disease and other diseases of the circulatory system; Z84.1 Family history of disorders of kidney and ureter; Z83.3 Family history of diabetes mellitus; Z68.35 Body mass index [BMI] 35.0-35.9, adult; Y93.89 Activity, other specified; Y92.89 Other specified places as the place of occurrence of the external cause
CPT/HCPCS: 36415; 51702; 70450; 71045; 73030; 73060; 76775; 80053; 80307; 80320; 80329; 81001; 82306; 82962; 83036; 83540; 83550; 83605; 83735; 83970; 84100; 84484; 84550; 85025; 85610; 85730; 87040; 87081; 87086; 93005; 95819; 96361; 96374; 96375; 96376

== ENCOUNTER 2017-12-16 13:25 | Emergency (ER) | payer MEDICAID ==
[~2017-12-16] VITALS: Ht 160 cm; Wt 88.0 kg
[2017-12-16 13:51] VITALS: BP 122/69
== END 2017-12-16 15:01 | disposition home or self-care (01) ==
LOC: ER 13:27
DX: R07.89 Other chest pain (principal); R10.13 Epigastric pain; J44.9 Chronic obstructive pulmonary disease, unspecified; F32.9 Major depressive disorder, single episode, unspecified; K21.9 Gastro-esophageal reflux disease without esophagitis; I10 Essential (primary) hypertension; Z90.49 Acquired absence of other specified parts of digestive tract; Z88.1 Allergy status to other antibiotic agents; Z88.6 Allergy status to analgesic agent; Z90.710 Acquired absence of both cervix and uterus
CPT/HCPCS: 93005